=== PATIENT | female | born 1945 | race Caucasian/White ===

== ENCOUNTER 2016-04-13 12:40 | Outpatient (CLI) | payer MEDICARE | END 2016-04-13 12:41 | disposition home or self-care (01) | LOC: MADLAB 12:40 | PROVIDERS: ATTEND Family Medicine | DX: R94.6 Abnormal results of thyroid function studies (principal) | CPT/HCPCS: 36415; 80061 ==

== ENCOUNTER 2018-11-09 15:41 | Inpatient (IN) | payer MEDICARE ==
[2018-11-09] MEDS ORDERED: Nitroglycerin 0.4 MG TAB (25 Tab Bottle) SL PRN (16:40)
[2018-11-09] MEDS: Nicotine 21 MG PATCH TD SCH (17:39)
[2018-11-09] MEDS: traMADol HCl 50 MG TAB PO SCH ×2 (17:40→23:19)
[2018-11-09] MEDS: Senokot S 8.6-50 MG TAB PO SCH (20:02)
[2018-11-09] MEDS: Acetaminophen 500 MG TAB PO PRN (20:02)
[2018-11-09] MEDS: Ibuprofen 600 MG TAB PO PRN (20:03)
[2018-11-09] MEDS: Gabapentin 300 MG CAP PO SCH (20:03)
[2018-11-10] MEDS: traMADol HCl 50 MG TAB PO SCH (05:37)
[2018-11-10 05:45] LABS: #Basophils 0.1 thou/uL (0.0-0.2); #Eosinphils 0.3 thou/uL (0.0-0.7); #Lymphocytes 1.5 thou/uL (1.20-3.40); #Monocytes 0.6 thou/uL (0.11-0.59); #Neutrophils 3.1 thou/uL (1.40-6.50); %Eosinophils 5.2 % (0.0-10.0); %Lymphocytes 27.1 % (21.0-51.0); %Monocytes 10.6 % (0.0-10.0); %Neutrophils 56.1 % (42.0-75.0); Hemoglobin 9.3 g/dL (12.0-16.0); Mean Corpuscular HGB CONC 34.5 g/dL (32.0-36.0); Mean Corpuscular Hemoglobin 32.2 pg (27.0-31.0); Mean Corpuscular Volume 93.3 fL (78.0-98.0); Platelet Count 158 thou/uL (130-400); RBC Distribution Width 12.7 % (11.5-14.5); Red Blood Cell (RBC) Count 2.88 mill/uL (4.20-5.40); White Blood Cell (WBC) Count 5.5 thou/uL (4.8-10.8)
[2018-11-10 05:55] LABS: ALT (SGPT) 26 U/L (8-55); AST (SGOT) 37 U/L (5-34); Alkaline Phosphatase 64 U/L (40-110); Anion Gap 12 mmol/L (10-20); BUN (Urea Nitrogen) 14 mg/dL (9.8-20.1); Bilirubin, Total 0.4 mg/dL (0.2-1.2); Calc. Creatinine Clearance 57 mL/min (70-130); Calcium 9.1 mg/dL (7.8-10.44); Carbon Dioxide 24 mmol/L (23-31); Chloride 108 mmol/L (98-107); Estimated GFR-MDRD 77; Globulin 2.3 g/dL (2.4-3.5); Glucose 83 mg/dL (83-110); Protein, Total 5.3 g/dL (6.0-8.3); Sodium 140 mmol/L (136-145)
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
[2018-11-10] MEDS: Gabapentin 300 MG CAP PO SCH ×3 (08:47→20:40)
[2018-11-10] MEDS: Lisinopril 5 MG TAB PO SCH (08:47)
[2018-11-10] MEDS: Polyethylene Glycol 3350 17 GM Packet PO SCH (08:47)
[2018-11-10] MEDS: Enoxaparin Sodium 30 MG/0.3 ML SYRINGE SC SCH (08:47)
[2018-11-10] MEDS: Senokot S 8.6-50 MG TAB PO SCH ×2 (08:47→20:40)
[2018-11-10] MEDS ORDERED: Enoxaparin Sodium 30 MG/0.3 ML SYRINGE SC SCH (09:00)
[2018-11-10] MEDS: Acetaminophen 500 MG TAB PO PRN (10:41)
[2018-11-10] MEDS ORDERED: traMADol HCl 50 MG TAB PO SCH (12:00)
[2018-11-10] MEDS ORDERED: Nicotine 21 MG PATCH TD SCH (15:00)
[2018-11-10] MEDS: Nicotine 21 MG PATCH TD SCH (15:35)
[2018-11-10] MEDS ORDERED: traMADol HCl 50 MG TAB PO PRN ×2 (18:00)
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
[2018-11-10] MEDS: Rosuvastatin 10 MG TAB PO SCH (20:40)
[2018-11-10] MEDS: HYDROcodone/Acetaminophen 5/325 mg Tablet PO PRN (20:40)
[2018-11-11] MEDS: Senokot S 8.6-50 MG TAB PO SCH ×3 (08:12→21:56)
[2018-11-11] MEDS: Enoxaparin Sodium 30 MG/0.3 ML SYRINGE SC SCH (08:12)
[2018-11-11] MEDS: Lisinopril 5 MG TAB PO SCH (08:12)
[2018-11-11] MEDS: Gabapentin 300 MG CAP PO SCH ×3 (08:12→21:56)
[2018-11-11] MEDS: Polyethylene Glycol 3350 17 GM Packet PO SCH (08:12)
[2018-11-11] MEDS: HYDROcodone/Acetaminophen 5/325 mg Tablet PO PRN ×4 (08:13→21:57)
[2018-11-11] MEDS ORDERED: Bisacodyl 10 MG SUPP PR PRN (09:27)
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
[2018-11-11] MEDS: Ibuprofen 600 MG TAB PO PRN (14:44)
[2018-11-11] MEDS: Nicotine 21 MG PATCH TD SCH (14:44)
[2018-11-11] MEDS: Rosuvastatin 10 MG TAB PO SCH (21:57)
[2018-11-12] MEDS: Senokot S 8.6-50 MG TAB PO SCH ×2 (07:58→20:00)
[2018-11-12] MEDS: HYDROcodone/Acetaminophen 5/325 mg Tablet PO PRN ×3 (07:59→19:52)
[2018-11-12] MEDS: Polyethylene Glycol 3350 17 GM Packet PO SCH ×2 (07:59→19:59)
[2018-11-12] MEDS: Lisinopril 5 MG TAB PO SCH (07:59)
[2018-11-12] MEDS: Gabapentin 300 MG CAP PO SCH ×3 (07:59→20:00)
[2018-11-12] MEDS: Enoxaparin Sodium 30 MG/0.3 ML SYRINGE SC SCH (07:59)
[2018-11-12] MEDS ORDERED: Fleet Enema 133 ML BOT PR PRN (14:45)
[2018-11-12] MEDS: Nicotine 21 MG PATCH TD SCH (14:54)
[2018-11-12] MEDS: Ibuprofen 600 MG TAB PO PRN (15:01)
[2018-11-12] MEDS ORDERED: Mag-Al Plus 1200 MG/1200 MG/120 MG/30 ML UDCUP PO PRN (17:43)
[2018-11-12] MEDS: Rosuvastatin 10 MG TAB PO SCH (20:00)
[2018-11-13] MEDS: HYDROcodone/Acetaminophen 5/325 mg Tablet PO PRN ×3 (03:20→19:57)
[2018-11-13 05:00] LABS: #Basophils 0.1 thou/uL (0.0-0.2); #Eosinphils 0.2 thou/uL (0.0-0.7); #Lymphocytes 1.1 thou/uL (1.20-3.40); #Monocytes 0.7 thou/uL (0.11-0.59); #Neutrophils 4.2 thou/uL (1.40-6.50); %Basophils 0.9 % (0.0-1.0); %Eosinophils 3.8 % (0.0-10.0); %Lymphocytes 17.4 % (21.0-51.0); %Monocytes 11.5 % (0.0-10.0); %Neutrophils 66.5 % (42.0-75.0); Hemoglobin 9.9 g/dL (12.0-16.0); Mean Corpuscular HGB CONC 33.3 g/dL (32.0-36.0); Mean Corpuscular Hemoglobin 31.4 pg (27.0-31.0); Mean Corpuscular Volume 94.3 fL (78.0-98.0); Mean Platelet Volume 5.2 fL (7.4-10.4); Platelet Count 241 thou/uL (130-400); RBC Distribution Width 13.2 % (11.5-14.5); Red Blood Cell (RBC) Count 3.14 mill/uL (4.20-5.40); White Blood Cell (WBC) Count 6.3 thou/uL (4.8-10.8)
[2018-11-13 05:19] LABS: Anion Gap 13 mmol/L (10-20); BUN (Urea Nitrogen) 13 mg/dL (9.8-20.1); Calc. Creatinine Clearance 63 mL/min (70-130); Calcium 9.4 mg/dL (7.8-10.44); Carbon Dioxide 25 mmol/L (23-31); Chloride 108 mmol/L (98-107); Estimated GFR-MDRD 86; Glucose 123 mg/dL (83-110); Potassium 4.6 mmol/L (3.5-5.1); Sodium 141 mmol/L (136-145)
[2018-11-13] MEDS: Lisinopril 5 MG TAB PO SCH (08:21)
[2018-11-13] MEDS: Enoxaparin Sodium 30 MG/0.3 ML SYRINGE SC SCH (08:21)
[2018-11-13] MEDS: Polyethylene Glycol 3350 17 GM Packet PO SCH ×2 (08:21→19:59)
[2018-11-13] MEDS: Senokot S 8.6-50 MG TAB PO SCH ×2 (08:22→19:59)
[2018-11-13] MEDS: Gabapentin 300 MG CAP PO SCH ×4 (08:22→19:59)
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
[2018-11-13] MEDS ORDERED: Acetaminophen 500 MG TAB PO PRN (12:24)
--- NOTE | 2018-11-13 12:53 | RAD ---
XR Femur Lt 2 View STANDARD HISTORY: Severe thigh pain. COMPARISON: None. FINDINGS: The bones appear slightly demineralized. Minimal arthritic changes of the hip are present. Postoperative changes of the knee related to partial resection of the patella are seen. This does not appear changed as compared to the C-arm examination of 11/06/2018. IMPRESSION: Postoperative changes of the patella.
[2018-11-13] MEDS: Ibuprofen 600 MG TAB PO PRN (13:03)
[2018-11-13] MEDS: tiZANidine HCl 4 MG TAB PO PRN (13:54)
[2018-11-13] MEDS: Nicotine 21 MG PATCH TD SCH ×2 (15:17→17:38)
[2018-11-13] MEDS: Rosuvastatin 10 MG TAB PO SCH (19:59)
[2018-11-14] MEDS: HYDROcodone/Acetaminophen 5/325 mg Tablet PO PRN ×4 (02:01→21:22)
[2018-11-14] MEDS: Polyethylene Glycol 3350 17 GM Packet PO SCH ×2 (08:34→21:22)
[2018-11-14] MEDS: Enoxaparin Sodium 30 MG/0.3 ML SYRINGE SC SCH (08:34)
[2018-11-14] MEDS: Gabapentin 300 MG CAP PO SCH ×3 (08:35→21:21)
[2018-11-14] MEDS: Lisinopril 5 MG TAB PO SCH (08:35)
[2018-11-14] MEDS: Senokot S 8.6-50 MG TAB PO SCH ×2 (08:35→21:22)
[2018-11-14] MEDS: tiZANidine HCl 4 MG TAB PO PRN ×2 (08:41→15:03)
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
[2018-11-14] MEDS: Nicotine 21 MG PATCH TD SCH (15:04)
[2018-11-14] MEDS: Rosuvastatin 10 MG TAB PO SCH (21:22)
[2018-11-15] MEDS: HYDROcodone/Acetaminophen 5/325 mg Tablet PO PRN ×4 (05:36→20:57)
[2018-11-15] MEDS: tiZANidine HCl 4 MG TAB PO PRN ×2 (09:17→17:01)
[2018-11-15] MEDS: Senokot S 8.6-50 MG TAB PO SCH ×2 (09:18→20:50)
[2018-11-15] MEDS: Polyethylene Glycol 3350 17 GM Packet PO SCH ×2 (09:18→20:50)
[2018-11-15] MEDS: Gabapentin 300 MG CAP PO SCH ×3 (09:18→20:50)
[2018-11-15] MEDS: Lisinopril 5 MG TAB PO SCH (09:18)
[2018-11-15] MEDS: Enoxaparin Sodium 30 MG/0.3 ML SYRINGE SC SCH (09:18)
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
[2018-11-15] MEDS: Nicotine 21 MG PATCH TD SCH (15:22)
[2018-11-15] MEDS: Rosuvastatin 10 MG TAB PO SCH (20:50)
[2018-11-16] MEDS: tiZANidine HCl 4 MG TAB PO PRN ×2 (01:54→11:36)
[2018-11-16] MEDS: HYDROcodone/Acetaminophen 5/325 mg Tablet PO PRN ×4 (01:55→20:21)
[2018-11-16] MEDS: Senokot S 8.6-50 MG TAB PO SCH ×2 (08:30→20:21)
[2018-11-16] MEDS: Polyethylene Glycol 3350 17 GM Packet PO SCH ×2 (08:30→20:20)
[2018-11-16] MEDS: Lisinopril 5 MG TAB PO SCH (08:30)
[2018-11-16] MEDS: Enoxaparin Sodium 30 MG/0.3 ML SYRINGE SC SCH (08:30)
[2018-11-16] MEDS: Gabapentin 300 MG CAP PO SCH ×3 (08:30→20:20)
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
[2018-11-16 13:20] VITALS: BMI 21.6
[2018-11-16] MEDS: Nicotine 21 MG PATCH TD SCH (15:22)
[2018-11-16] MEDS: Ibuprofen 600 MG TAB PO PRN (17:09)
[2018-11-16] MEDS: Rosuvastatin 10 MG TAB PO SCH (20:20)
[2018-11-17] MEDS: Lisinopril 5 MG TAB PO SCH (08:38)
[2018-11-17] MEDS: Enoxaparin Sodium 30 MG/0.3 ML SYRINGE SC SCH (08:38)
[2018-11-17] MEDS: Gabapentin 300 MG CAP PO SCH ×3 (08:46→20:18)
[2018-11-17] MEDS: Senokot S 8.6-50 MG TAB PO SCH ×2 (08:46→20:16)
[2018-11-17] MEDS: Polyethylene Glycol 3350 17 GM Packet PO SCH ×2 (08:47→20:19)
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
[2018-11-17] MEDS: HYDROcodone/Acetaminophen 5/325 mg Tablet PO PRN ×2 (10:41→20:22)
[2018-11-17] MEDS: Nicotine 21 MG PATCH TD SCH (14:36)
[2018-11-17] MEDS: Ibuprofen 600 MG TAB PO PRN ×2 (14:36→22:18)
[2018-11-17] MEDS: Rosuvastatin 10 MG TAB PO SCH (20:17)
[2018-11-17] MEDS: Melatonin 3 MG TAB PO PRN (22:18)
[2018-11-18] MEDS: tiZANidine HCl 4 MG TAB PO PRN ×3 (02:03→18:14)
[2018-11-18] MEDS: HYDROcodone/Acetaminophen 5/325 mg Tablet PO PRN ×2 (08:35→14:30)
[2018-11-18] MEDS: Enoxaparin Sodium 30 MG/0.3 ML SYRINGE SC SCH (08:36)
[2018-11-18] MEDS: Lisinopril 5 MG TAB PO SCH (08:37)
[2018-11-18] MEDS: Gabapentin 300 MG CAP PO SCH ×3 (08:37→20:25)
[2018-11-18] MEDS: Senokot S 8.6-50 MG TAB PO SCH ×2 (08:37→20:27)
[2018-11-18] MEDS: Polyethylene Glycol 3350 17 GM Packet PO SCH ×2 (08:37→20:26)
[2018-11-18] MEDS: Ibuprofen 600 MG TAB PO PRN ×2 (11:07→18:14)
[2018-11-18] MEDS: Nicotine 21 MG PATCH TD SCH (14:31)
[2018-11-18] MEDS: Rosuvastatin 10 MG TAB PO SCH (20:26)
[2018-11-19] MEDS: HYDROcodone/Acetaminophen 5/325 mg Tablet PO PRN ×3 (00:39→20:07)
[2018-11-19] MEDS: Polyethylene Glycol 3350 17 GM Packet PO SCH ×2 (08:13→19:59)
[2018-11-19] MEDS: Lisinopril 5 MG TAB PO SCH (08:14)
[2018-11-19] MEDS: Enoxaparin Sodium 30 MG/0.3 ML SYRINGE SC SCH (08:14)
[2018-11-19] MEDS: Senokot S 8.6-50 MG TAB PO SCH ×2 (08:14→20:06)
[2018-11-19] MEDS: Gabapentin 300 MG CAP PO SCH ×3 (08:14→20:05)
[2018-11-19] MEDS: Ibuprofen 600 MG TAB PO PRN (14:07)
[2018-11-19] MEDS: tiZANidine HCl 4 MG TAB PO PRN (14:07)
[2018-11-19] MEDS: Nicotine 21 MG PATCH TD SCH (15:46)
[2018-11-19] MEDS: Rosuvastatin 10 MG TAB PO SCH (20:04)
[2018-11-19] MEDS: Melatonin 3 MG TAB PO PRN (20:05)
[2018-11-20] MEDS: HYDROcodone/Acetaminophen 5/325 mg Tablet PO PRN ×3 (07:46→20:15)
[2018-11-20] MEDS: tiZANidine HCl 4 MG TAB PO PRN ×3 (07:54→20:15)
[2018-11-20] MEDS: Enoxaparin Sodium 30 MG/0.3 ML SYRINGE SC SCH (08:37)
[2018-11-20] MEDS: Senokot S 8.6-50 MG TAB PO SCH ×2 (08:37→20:15)
[2018-11-20] MEDS: Lisinopril 5 MG TAB PO SCH (08:37)
[2018-11-20] MEDS: Gabapentin 300 MG CAP PO SCH ×3 (08:40→20:14)
[2018-11-20] MEDS: Polyethylene Glycol 3350 17 GM Packet PO SCH ×2 (08:41→20:14)
[2018-11-20] MEDS: Ibuprofen 600 MG TAB PO PRN (10:21)
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
[2018-11-20] MEDS: Nicotine 21 MG PATCH TD SCH (14:32)
[2018-11-20] MEDS: Melatonin 3 MG TAB PO PRN (20:15)
[2018-11-20] MEDS: Rosuvastatin 10 MG TAB PO SCH (20:15)
[2018-11-21] MEDS: tiZANidine HCl 4 MG TAB PO PRN ×3 (02:43→20:08)
[2018-11-21] MEDS: HYDROcodone/Acetaminophen 5/325 mg Tablet PO PRN ×3 (04:16→20:00)
[2018-11-21 05:22] LABS: #Basophils 0.1 thou/uL (0.0-0.2); #Eosinphils 0.3 thou/uL (0.0-0.7); #Lymphocytes 2.3 thou/uL (1.20-3.40); #Monocytes 0.7 thou/uL (0.11-0.59); #Neutrophils 3.9 thou/uL (1.40-6.50); %Basophils 1.2 % (0.0-1.0); %Lymphocytes 31.8 % (21.0-51.0); %Monocytes 9.3 % (0.0-10.0); %Neutrophils 53.7 % (42.0-75.0); Hemoglobin 11.1 g/dL (12.0-16.0); Mean Corpuscular HGB CONC 31.4 g/dL (32.0-36.0); Mean Corpuscular Hemoglobin 30.5 pg (27.0-31.0); Mean Corpuscular Volume 97.1 fL (78.0-98.0); Mean Platelet Volume 5.3 fL (7.4-10.4); Platelet Count 501 thou/uL (130-400); RBC Distribution Width 13.7 % (11.5-14.5); Red Blood Cell (RBC) Count 3.65 mill/uL (4.20-5.40); White Blood Cell (WBC) Count 7.2 thou/uL (4.8-10.8)
[2018-11-21 05:39] LABS: Anion Gap 13 mmol/L (10-20); BUN (Urea Nitrogen) 19 mg/dL (9.8-20.1); Calc. Creatinine Clearance 56 mL/min (70-130); Calcium 10.2 mg/dL (7.8-10.44); Carbon Dioxide 26 mmol/L (23-31); Chloride 110 mmol/L (98-107); Estimated GFR-MDRD 78; Glucose 124 mg/dL (83-110); Potassium 4.9 mmol/L (3.5-5.1); Sodium 144 mmol/L (136-145)
[2018-11-21] MEDS: Senokot S 8.6-50 MG TAB PO SCH ×2 (08:13→20:01)
[2018-11-21] MEDS: Lisinopril 5 MG TAB PO SCH (08:13)
[2018-11-21] MEDS: Gabapentin 300 MG CAP PO SCH ×3 (08:13→20:01)
[2018-11-21] MEDS: Ibuprofen 600 MG TAB PO PRN (08:13)
[2018-11-21] MEDS: Polyethylene Glycol 3350 17 GM Packet PO SCH ×2 (08:13→20:02)
[2018-11-21] MEDS: Enoxaparin Sodium 30 MG/0.3 ML SYRINGE SC SCH (08:13)
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
[2018-11-21] MEDS: Nicotine 21 MG PATCH TD SCH (14:43)
[2018-11-21] MEDS: Rosuvastatin 10 MG TAB PO SCH (20:02)
[2018-11-21] MEDS: Melatonin 3 MG TAB PO PRN (20:08)
[2018-11-22] MEDS: HYDROcodone/Acetaminophen 5/325 mg Tablet PO PRN ×3 (01:45→19:10)
[2018-11-22] MEDS: tiZANidine HCl 4 MG TAB PO PRN ×3 (01:46→20:33)
[2018-11-22] MEDS: Lisinopril 5 MG TAB PO SCH (08:27)
[2018-11-22] MEDS: Senokot S 8.6-50 MG TAB PO SCH ×2 (08:27→20:33)
[2018-11-22] MEDS: Gabapentin 300 MG CAP PO SCH ×3 (08:27→20:31)
[2018-11-22] MEDS: Enoxaparin Sodium 30 MG/0.3 ML SYRINGE SC SCH (08:27)
[2018-11-22] MEDS: Polyethylene Glycol 3350 17 GM Packet PO SCH ×2 (08:27→20:31)
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
[2018-11-22] MEDS: Nicotine 21 MG PATCH TD SCH (15:00)
[2018-11-22] MEDS: Rosuvastatin 10 MG TAB PO SCH (20:31)
[2018-11-22] MEDS: Melatonin 3 MG TAB PO PRN (20:33)
[2018-11-23] MEDS: tiZANidine HCl 4 MG TAB PO PRN ×2 (00:34→10:03)
[2018-11-23] MEDS: HYDROcodone/Acetaminophen 5/325 mg Tablet PO PRN ×3 (03:00→15:42)
[2018-11-23 07:19] VITALS: TEMP 97.1
[2018-11-23] MEDS: Senokot S 8.6-50 MG TAB PO SCH (08:50)
[2018-11-23] MEDS: Polyethylene Glycol 3350 17 GM Packet PO SCH (08:50)
[2018-11-23] MEDS: Gabapentin 300 MG CAP PO SCH ×2 (08:50→15:39)
[2018-11-23] MEDS: Lisinopril 5 MG TAB PO SCH (08:51)
[2018-11-23] MEDS: Enoxaparin Sodium 30 MG/0.3 ML SYRINGE SC SCH (08:51)
[2018-11-23 08:52] VITALS: BP 141/64
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
[2018-11-23] MEDS: Nicotine 21 MG PATCH TD SCH (15:39)
== END 2018-11-23 16:10 | disposition home or self-care (01) | DRG 948 ==
LOC: MADMS 15:41
PROVIDERS: ADMIT Family Medicine; ATTEND Family Medicine
DX: R53.1 Weakness (principal); R26.89 Other abnormalities of gait and mobility; I10 Essential (primary) hypertension; E78.00 Pure hypercholesterolemia, unspecified; M54.5 Low back pain; G89.29 Other chronic pain; Z79.899 Other long term (current) drug therapy; Z90.49 Acquired absence of other specified parts of digestive tract; Z90.710 Acquired absence of both cervix and uterus; F17.210 Nicotine dependence, cigarettes, uncomplicated; S92.002D Unspecified fracture of left calcaneus, subsequent encounter for fracture with routine healing; S82.092D Other fracture of left patella, subsequent encounter for closed fracture with routine healing; S00.83XD Contusion of other part of head, subsequent encounter; V89.2XXD Person injured in unspecified motor-vehicle accident, traffic, subsequent encounter; K59.00 Constipation, unspecified; S20.219D Contusion of unspecified front wall of thorax, subsequent encounter
CPT/HCPCS: 36415; 80048; 80053; 85025; J1650; J7620

== ENCOUNTER 2023-08-18 00:10 | Emergency (ER) | payer MEDICARE ==
[2023-08-18] MEDS ORDERED: Aspirin Chewable 81 MG TAB ONE (00:47)
[2023-08-18] MEDS ORDERED: Nitroglycerin 2% Ointment 1 INCH/1 GM Packet ONE (00:48)
[2023-08-18 00:52] LABS: #Basophils 0.1 thou/uL (0.0-0.2); #Eosinphils 0.3 thou/uL (0.0-0.7); #Lymphocytes 2.7 thou/uL (1.20-3.40); #Monocytes 0.7 thou/uL (0.11-0.59); #Neutrophils 4.8 thou/uL (1.40-6.50); %Basophils 0.9 % (0.0-1.0); %Eosinophils 3.5 % (0.0-10.0); %Lymphocytes 31.9 % (21.0-51.0); %Monocytes 7.8 % (0.0-10.0); %Neutrophils 55.9 % (42.0-75.0); Hematocrit 41.8 % (36.0-47.0); Mean Corpuscular HGB CONC 31.1 g/dL (32.0-36.0); Mean Corpuscular Hemoglobin 29.5 pg (27.0-31.0); Mean Corpuscular Volume 94.8 fl (78.0-98.0); Mean Platelet Volume 6.9 fL (7.4-10.4); Platelet Count 181 10x3/uL (130-400); RBC Distribution Width 12.7 % (11.5-14.5); Red Blood Cell (RBC) Count 4.41 mill/uL (4.20-5.40); White Blood Cell (WBC) Count 8.5 10x3/uL (4.8-10.8)
[2023-08-18 01:14] LABS: ALT (SGPT) 26 U/L (8-55); AST (SGOT) 17 U/L (5-34); Alkaline Phosphatase 96 U/L (40-110); Anion Gap 12 mmol/L (10-20); BUN (Urea Nitrogen) 13 mg/dL (9.8-20.1); Bilirubin, Total 0.3 mg/dL (0.2-1.2); Calc. Creatinine Clearance 0 mL/min (70-130); Calcium 9.4 mg/dL (7.8-10.44); Chloride 110 mmol/L (98-107); Estimated GFR 73; Globulin 2.5 g/dL (2.4-3.5); Glucose 173 mg/dL (83-110); Lipase 29 U/L (8-78); Potassium 3.8 mmol/L (3.5-5.1); Protein, Total 6.5 g/dL (5.8-8.1); Sodium 140 mmol/L (136-145)
[2023-08-18 01:33] LABS: Prothrombin Time 12.9 sec (12.0-14.7)
[2023-08-18 01:34] LABS: PTT 29.5 sec (22.9-36.1)
[2023-08-18 01:36] LABS: D-Dimer Test 1.17 mcg/mL (0.27-0.43)
[2023-08-18 01:44] LABS: Carbon Dioxide 22 mmol/L (23-31)
[2023-08-18 01:47] LABS: Troponin I 0.011 ng/mL (< 0.028)
[2023-08-18 03:51] LABS: Troponin I Less than 0.010 ng/mL (< 0.028)
[2023-08-18] MEDS ORDERED: Iopamidol 370 76% 100 ML VIAL ONE (09:00)
== END 2023-08-18 04:57 | disposition short-term general hospital (02) ==
LOC: MADERS 00:10
DX: I20.0 Unstable angina (principal); R79.1 Abnormal coagulation profile; I10 Essential (primary) hypertension; E78.00 Pure hypercholesterolemia, unspecified; F17.210 Nicotine dependence, cigarettes, uncomplicated
CPT/HCPCS: 71045; 71275; 80053; 83690; 84484; 85025; 85379; 85610; 85730; 93005; 94760; Q9967